=== PATIENT | male | born 1960 | race Caucasian/White ===

== ENCOUNTER 2017-08-04 12:12 | Day surgery (SDC) | payer OTHER ==
[~2017-08-04] VITALS: Ht 175.3 cm; Wt 59.0 kg
[~2017-08-04 12:12] MED LIST: ASPIRIN81 M2 PO; BREO ELLIPTA I1 EACH IH; CALCIUM 500 MG1 EACH PO; CENTRUM SILVER1 EAC5 PO; OXYCODONE HCL E60 MG PO; OXYCONTIN15 MG PO
[2017-08-04 12:45] VITALS: BP 126/77
[2017-08-04 16:15] VITALS: BP 148/72
[2017-08-04 16:54] VITALS: BP 143/67
== END 2017-08-04 16:55 | disposition home or self-care (01) ==
LOC: SDC 12:12
DX: M77.41 Metatarsalgia, right foot (principal); M79.671 Pain in right foot; M24.574 Contracture, right foot; M20.41 Other hammer toe(s) (acquired), right foot; Z79.82 Long term (current) use of aspirin
CPT/HCPCS: 73630; 76000; C1713; J0690; J2250; J3010; S0020